=== PATIENT | male | born 1990 | race Asian ===

== ENCOUNTER 2021-05-19 14:53 | Emergency (ER) | payer BC ==
[~2021-05-19] VITALS: Ht 165.1 cm; Wt 65.9 kg
[2021-05-19 15:11] VITALS: BP 155/108
--- NOTE | 2021-05-19 16:06 | RAD ---
EXAMINATION: XR FOREARM_LEFT 2 VIEWS CLINICAL HISTORY: Left forearm pain following fall TECHNIQUE: XR FOREARM_LEFT 2 VIEWS Number of Images/Views: 2 COMPARISON: None FINDINGS: No acute fracture or dislocation. No focal soft tissue swelling. IMPRESSION: No acute osseous abnormality. Electronically signed by: Casey Soares DO (05/19/2021 4:03 PM) [facility]
--- NOTE | 2021-05-19 16:07 | RAD ---
EXAMINATION: XR RT TIBIA+FIBULA , XR LT TIBIA + FIBULA CLINICAL HISTORY: Bilateral leg pain following fall TECHNIQUE: XR RT TIBIA+FIBULA , XR LT TIBIA + FIBULA Number of Images/Views: 3 each COMPARISON: None FINDINGS: No acute fracture. Joint spaces at the knees and ankles incompletely evaluated. No focal soft tissue swelling. IMPRESSION: No acute osseous abnormality. Electronically signed by: Casey Soares DO (05/19/2021 4:05 PM) [facility]
--- NOTE | 2021-05-19 16:21 | RAD ---
EXAMINATION: CT CHEST_ABDOMEN_ AND PELVIS WITHOUT CONTRAST (CT CHEST WITHOUT IV CONTRAST and CT ABDOM EN AND PELVIS WITHOUT IV CONTRAST) CLINICAL HISTORY: Chest and abdominal pain following fall; fell 7 ft from a ladder TECHNIQUE: CT of the chest performed without IV contrast, scanning from the thoracic inlet to the upp er abdomen. CT of the abdomen and pelvis performed without IV contrast, scanning from just above the dome of the diaphragm to the symphysis pubis. CT Dose Reduction Employed: One or more of the following individualized dose reduction techniques wer e utilized for this examination: 1. Automated exposure control 2. Adjustment of the mA and/or kV ac cording to patient size 3. Use of iterative reconstruction technique. COMPARISON: None FINDINGS: CHEST: Mild subsegmental atelectasis predominantly in the lower lobes. No focal airspace consolidation, pleu ral effusion, or pneumothorax. Central airways patent. Visualized thyroid gland within normal limits. No mediastinal, hilar, or axillary lymphadenopathy. Th oracic aorta and main pulmonary artery normal in caliber. Normal heart size. No pericardial effusion. No evidence of acute osseous abnormality. ABDOMEN/PELVIS: Diffuse hypoattenuation of the hepatic parenchyma, compatible with mild steatosis. Gallbladder, pancr eas, spleen, and adrenal glands unremarkable. Asymmetrically prominent left kidney with probable duplicated collecting system. Alternatively, the l eft kidney could be asymmetrically enlarged with column of Jorge. Mildly filled urinary bladder. No dilated bowel. Normal appendix. No abdominal aortic or iliac artery aneurysm. No evidence of acute osseous abnormality. IMPRESSION: No evidence of acute cardiopulmonary or abdominopelvic abnormality. No evidence of acute osseous abnormality. Electronically signed by: Casey Soares DO (05/19/2021 4:18 PM) [facility]
[2021-05-19] MEDS ORDERED: CYCL10TA2 PO (16:48)
[2021-05-19] MEDS ORDERED: NAPR-685 PO (16:48)
--- NOTE | 2021-05-19 16:49 | PHYS DOC ---
Past Medical History Past Medical History: No Pertinent History (CESARKIRSTEN Gutierres BUTTING SAW OPERATOR) Past Surgical History: No Surgical History (TANIAKIRSTEN BUTTING SAW OPERATOR) Smoking Status: Current Every Day Smoker Alcohol Use: None (KIRSTEN MARIN Toni BUTTING SAW OPERATOR) General Adult EDM: Chief Complaint: MECHANICAL FALL HPI: HPI: Patient is a 30 year old male who presents to the ED today to be evaluated after falling off a ladder. Patient states he was painting his house using a 7 foot ladder which started to slide off the wall, he states it landed on the floor and he landed on top of the ladder. Patient denies hitting his head on the ladder or the ground. Denies any loss of consciousness. Denies any neck pain, mid or low back pain. He is complaining of left lower rib pain, bruising to the left forearm and bilateral oneill. Patient states the pain is intermittent and mild. Patient states the pain is only on touching the bruised region. (KIRSTEN MARIN Toni BUTTING SAW OPERATOR) Review of Systems: Review of Systems: Constitutional: Denies fever or chills. [] Eyes: Denies change in visual acuity. [] HENT: Denies nasal congestion or sore throat. [] Respiratory: Reports left lower rib pain. Denies cough or shortness of breath. [] Cardiovascular: Denies chest pain or edema. [] GI: Denies abdominal pain, nausea, vomiting, bloody stools or diarrhea. [] : Denies dysuria. [] Musculoskeletal: Denies back pain or joint pain. [] Integument: Reports bruising to bilateral shins Neurologic: Denies headache, focal weakness or sensory changes. [] Psychiatric: Denies depression or anxiety. [] (TANIAKIRSTEN Muñoz BUTTING SAW OPERATOR) Heart Score: C/O Chest Pain: N/A Risk Factors: Risk Factors: DM, Current or recent (<one month) smoker, HTN, HLP, family history of CAD, obesity. Risk Scores: Score 0 - 3: 2.5% MACE over next 6 weeks - Discharge Home Score 4 - 6: 20.3% MACE over next 6 weeks - Admit for Clinical Observation Score 7 - 10: 72.7% MACE over next 6 weeks - Early Invasive Strategies (KIRILLMAYAKIRSTEN Gutierres BUTTING SAW OPERATOR) Allergies: Allergies: Allergies Coded Allergies Type Severity Reaction Last Updated Verified No Known Drug Allergies 05/19/21 No (KIRSTEN MARIN Toni BUTTING SAW OPERATOR) Physical Exam: PE: Constitutional: Well developed, well nourished, no acute distress, non-toxic appearance. [] HENT: Normocephalic, atraumatic, bilateral external ears normal, oropharynx moist, no oral exudates, nose normal. [] Eyes: PERRLA, EOMI, conjunctiva normal, no discharge. [] Neck: Normal range of motion, no tenderness, supple, no stridor. [] Cardiovascular:Heart rate regular rhythm, no murmur [] Lungs & Thorax: Slight bruising noted on the left lower ribs. Bilateral breath sounds clear to auscultation [] Abdomen: Bowel sounds normal, soft, no tenderness, no masses, no pulsatile emily s. [] Skin: Warm, dry, no erythema, no rash. [] Back: No tenderness, no CVA tenderness. [] Extremities: No tenderness, no cyanosis, no clubbing, ROM intact, no edema. Bruising to bilateral oneill and left forearm Neurologic: Alert and oriented X 3, normal motor function, normal sensory function, no focal deficits noted. [] Psychologic: Affect normal, judgement normal, mood normal. [] (KIRSTEN MARIN Toni BUTTING SAW OPERATOR) Current Patient Data: Vital Signs: Vital Signs Date Time Temp Pulse Resp B/P (MAP) Pulse Ox O2 Delivery O2 Flow Rate FiO2 05/19/21 15:11 97.7 99 20 155/108 (124) 100 Room Air 97.7 (KIRSTEN MARIN Toni BUTTING SAW OPERATOR) EKG: EKG: [] (KIRSTEN MARIN BUTTING SAW OPERATOR) Radiology/Procedures: Radiology/Procedures: []PROCEDURE: CT CHEST ABDOMEN PELVIS WO EXAMINATION: CT CHEST_ABDOMEN_ AND PELVIS WITHOUT CONTRAST (CT CHEST WITHOUT IV CONTRAST and CT ABDOMEN AND PELVIS WITHOUT IV CONTRAST) CLINICAL HISTORY: Chest and abdominal pain following fall; fell 7 ft from a ladder TECHNIQUE: CT of the chest performed without IV contrast, scanning from the thoracic inlet to the upper abdomen. CT of the abdomen and pelvis performed without IV contrast, scanning from just above the dome of the diaphragm to the symphysis pubis. CT Dose Reduction Employed: One or more of the following individualized dose reduction techniques were utilized for this examination: 1. Automated exposure control 2. Adjustment of the mA and/or kV according to patient size 3. Use of iterative reconstruction technique. COMPARISON: None FINDINGS: CHEST: Mild subsegmental atelectasis predominantly in the lower lobes. No focal airspace consolidation, pleural effusion, or pneumothorax. Central airways patent. Visualized thyroid gland within normal limits. No mediastinal, hilar, or axillary lymphadenopathy. Thoracic aorta and main pulmonary artery normal in caliber. Normal heart size. No pericardial effusion. No evidence of acute osseous abnormality. ABDOMEN/PELVIS: Diffuse hypoattenuation of the hepatic parenchyma, compatible with mild steatosis. Gallbladder, pancreas, spleen, and adrenal glands unremarkable. Asymmetrically prominent left kidney with probable duplicated collecting system. Alternatively, the left kidney could be asymmetrically enlarged with column of Jorge. Mildly filled urinary bladder. No dilated bowel. Normal appendix. No abdominal aortic or iliac artery aneurysm. No evidence of acute osseous abnormality. IMPRESSION: No evidence of acute cardiopulmonary or abdominopelvic abnormality. No evidence of acute osseous abnormality. Electronically signed by: Casey Douglass DO (05/19/2021 4:18 PM) [facility] DICTATED and SIGNED BY: CASEY DOUGLASS DO DATE: 05/19/21 [id number] PROCEDURE: TIBIA FIBULA LEFT EXAMINATION: XR RT TIBIA+FIBULA , XR LT TIBIA + FIBULA CLINICAL HISTORY: Bilateral leg pain following fall TECHNIQUE: XR RT TIBIA+FIBULA , XR LT TIBIA + FIBULA Number of Images/Views: 3 each COMPARISON: None FINDINGS: No acute fracture. Joint spaces at the knees and ankles incompletely evaluated. No focal soft tissue swelling. IMPRESSION: No acute osseous abnormality. Electronically signed by: Casey Douglass DO (05/19/2021 4:05 PM) [facility] DICTATED and SIGNED BY: CASEY DOUGLASS DO DATE: 05/19/21 [id number] PROCEDURE: TIBIA FIBULA RIGHT EXAMINATION: XR RT TIBIA+FIBULA , XR LT TIBIA + FIBULA CLINICAL HISTORY: Bilateral leg pain following fall TECHNIQUE: XR RT TIBIA+FIBULA , XR LT TIBIA + FIBULA Number of Images/Views: 3 each COMPARISON: None FINDINGS: No acute fracture. Joint spaces at the knees and ankles incompletely evaluated. No focal soft tissue swelling. IMPRESSION: No acute osseous abnormality. Electronically signed by: Casey Douglass DO (05/19/2021 4:05 PM) [facility] DICTATED and SIGNED BY: CASEY DOUGLASS DO DATE: 05/19/21 [id number] PROCEDURE: FOREARM LEFT EXAMINATION: XR FOREARM_LEFT 2 VIEWS CLINICAL HISTORY: Left forearm pain following fall TECHNIQUE: XR FOREARM_LEFT 2 VIEWS Number of Images/Views: 2 COMPARISON: None FINDINGS: No acute fracture or dislocation. No focal soft tissue swelling. IMPRESSION: No acute osseous abnormality. Electronically signed by: Casey Douglass DO (05/19/2021 4:03 PM) [facility] DICTATED and SIGNED BY: CASEY DOUGLASS DO DATE: 05/19/21 [id number] (KIRSTEN MARIN APRN) Course & Med Decision Making: Course & Med Decision Making Pertinent Labs and Imaging studies reviewed. (See chart for details) This is a 30-year-old male patient presenting to the ED today to be evaluated after falling off a 7 foot ladder. See HPI. Patient has no neck pain, mid or low back pain. Was complaining of lower rib pain on the left side. Had bruising on the left forearm and bilateral oneill. Left forearm x-ray, bilateral tib-fib x-rays are negative. CT of the chest abdomen and pelvis are negative. Discharge to home. Follow-up with PCP in 1 to 2 weeks. Tetanus updated (KIRSTEN MARIN APRN) Course & Med Decision Making I oversaw on the above date of service of this patient. This patient was evaluated, examined, treated, and dispositioned from the emergency department by the mid-level practitioner. Although I was working at the time and available for consultation, no assistance was requested and I did not see or immediately direct the care of this patient. I reviewed note and agree to findings, plan of care, and disposition as stated. Electronically signed, Vero Kemp DO (VERO KEMP DO) Halley Disclaimer: Halley Disclaimer: This electronic medical record was generated, in whole or in part, using a voice recognition dictation system. (KIRSTEN MARIN APRN) Departure Departure Impression: Primary Impression: Fall Qualified Codes: W19.XXXA - Unspecified fall, initial encounter Additional Impressions: Contusion of skin Contusion of left forearm Qualified Codes: S50.12XA - Contusion of left forearm, initial encounter Contusion of rib on left side Qualified Codes: S20.212A - Contusion of left front wall of thorax, initial encounter Disposition: HOME / SELF CARE / HOMELESS Condition: STABLE Referrals: UNKNOWN PCP NAME (PCP) follow up with your doctor in 1-2 weeks Patient Instructions: Contusion Additional Instructions: You were evaluated in the emergency room after falling off a ladder. Please use the prescribed medications as needed for pain. Try to ice and elevate the affected areas. Apply Neosporin to bruised regions. Scripts Naproxen (EC-NAPROSYN) 500 Mg Tablet.dr 1 TAB PO BID for pain for 10 Days, #20 TAB 0 Refills Prov: KIRSTEN MARIN APRN 05/19/21 Cyclobenzaprine Hcl (CYCLOBENZAPRINE HCL) 10 Mg Tablet 1 TAB PO TID, #30 TAB Prov: KIRSTEN MARIN APRN 05/19/21 KIRSTEN MARIN APRN May 19, 2021 16:49 VERO KEMP DO May 20, 2021 05:56
== END 2021-05-19 17:02 | disposition home or self-care (01) ==
LOC: ER 14:53
DX: S20.212A Contusion of left front wall of thorax, initial encounter (principal); S50.12XA Contusion of left forearm, initial encounter; S80.12XA Contusion of left lower leg, initial encounter; S80.11XA Contusion of right lower leg, initial encounter; F17.200 Nicotine dependence, unspecified, uncomplicated; W11.XXXA Fall on and from ladder, initial encounter; Y93.89 Activity, other specified; Y92.89 Other specified places as the place of occurrence of the external cause; Y99.8 Other external cause status
CPT/HCPCS: 71250; 73090; 73590; 74176; 99285-25